=== PATIENT | female | born 1990 | race Asian ===

== ENCOUNTER 2016-12-10 20:52 | Emergency (ER) | payer BC ==
[~2016-12-10] VITALS: Ht 157.5 cm; Wt 63.0 kg
[~2016-12-10 20:52] MED LIST: HYDR-3498 PO; NAPR-260 PO
[2016-12-10 21:09] VITALS: Ht 157.5 cm; Wt 63.0 kg
[2016-12-10] MEDS ORDERED: TRIMETHOPRIM/SULFAMETHOX (DS) TAB PO STA (22:46)
[2016-12-10] MEDS ORDERED: CEPHALEXIN 500 MG CAP PO STA (22:46)
[2016-12-10] MEDS ORDERED: CEPH-443 PO (22:48)
[2016-12-10] MEDS ORDERED: BACTDS PO (22:48)
[2016-12-10] MEDS ORDERED: IBUP-1542 PO (22:50)
--- NOTE | 2016-12-10 23:01 | ERD ---
ER Documentation Chief Complaint Date/Time DATE: 12/10/16 TIME: 22:53 Chief Complaint L elbow swelling from a scrape. HPI This is a 26-year-old female presenting to the emergency department complaining of left elbow redness and pain that started last night status post getting an abrasion on it 2 days ago. Patient rates the pain 4 out of 10. Denies fever. Denies restricted range of motion. Patient states that she was seen at an urgent care [facility] at [facility] in which they have given her a Rocephin 1 g IM injection at 1955 and was referred to the ER for possible IV antibiotics. Patient denies any medical problems. ROS All systems reviewed and are negative except as per history of present illness. Medications Home Meds Active Scripts Ibuprofen* (Motrin*) 600 Mg Tab, 600 MG PO Q6H Y for PAIN AND OR ELEVATED TEMP, #30 TAB Prov:HUGO DIAZ PA-C 12/10/16 Sulfamethoxazole-Trimethoprim* (Bactrim* DS) 800-160 Mg Tab, 1 TAB PO BID for 7 Days, TAB Prov:HUGO DIAZ PA-C 12/10/16 Cephalexin* (Keflex*) 500 Mg Capsule, 500 MG PO QID for 10 Days, CAP Prov:HUGO DIAZ PA-C 12/10/16 Naproxen* (Naprosyn*) 500 Mg Tablet, 500 MG PO BID Y for PAIN AND/OR INFLAMMATION, #30 TAB Prov:JAYDE STEVENS DO 10/25/15 Hydrocodone Bit-Acetaminophen* ([place]*) 5-325 Mg Tab, 1 TAB PO Q6 Y for PAIN, # 7 TAB Prov:JAYDE STEVENS DO 10/25/15 Allergies Allergies: Coded Allergies: No Known Allergy (Unverified , 10/25/15) PMhx/Soc Medical and Surgical Hx: pt denies Medical Hx, pt denies Surgical Hx History of Surgery: Yes (OVARIAN CYST REMOVAL) Anesthesia Reaction: No Hx Neurological Disorder: No Hx Respiratory Disorders: No Hx Cardiac Disorders: No Hx Psychiatric Problems: No Hx Miscellaneous Medical Probl: Yes (ovarian cyst) Hx Alcohol Use: Yes (socially) Hx Substance Use: No Hx Tobacco Use: No Smoking Status: Never smoker Physical Exam Vitals Vital Signs Date Time Temp Pulse Resp B/P Pulse Ox O2 Delivery O2 Flow Rate FiO2 12/10/16 21:09 98.9 75 20 121/73 100 Physical Exam General: WD/WN, in no apparent distress, non-toxic appearing HENT: NC/AT Eyes: Conjunctiva normal Neck: Supple Pulm: Clear to auscultation, normal labored breathing; no wheezing/rales/ rhonchi heard CV: Good capillary refill GI: Non-distended, no guarding Back: No masses Ext: patient has no restricted range of motion bilaterally, non-tender with range of motion Neuro: Moves on all fours Skin: 5cm x 5cm Erythematous, swelling patch on the left elbow with warmth Psych: Normal mood Results 24 hrs Current Medications Medications (Trade) Dose Ordered Sig/Keith Route PRN Reason Start Time Stop Time Status Last Admin Dose Admin Cephalexin (Keflex) 500 mg ONCE STAT PO 12/10/16 22:46 12/10/16 22:47 DC Trimethoprim/ Sulfamethoxazole (Bactrim (Ds)) 1 tab ONCE STAT PO 12/10/16 22:46 12/10/16 22:47 DC Procedures/MDM This is a 26-year-old female presenting to the emergency department complaining of left elbow redness and pain that started last night status post getting an abrasion on it 2 days ago.. Patient states that she was seen at an urgent care [facility] at [facility] in which they have given her a Rocephin 1 g IM injection at 1955 and was referred to the ER for IV antibiotics for possible joint infection. On examination, patient appears well she is afebrile and nontoxic appearing. Patient had full range of motion of both extremities, she had no tenderness with range of motion as well. Patient appears to have non- circumferential 5 cm x 5 cm cellulitis around her left elbow due to an abrasion that occurred 2 days ago. Although patient was referred to the ER for IV antibiotics for a possible joint infection, on my examination patient appears to have cellulitis. She does not appear to have septic joint. There was no evidence of lymphangitis, osteomyelitis. Patient is suitable for oral antibiotics Keflex and Bactrim. I have discussed with patient to return to the emergency room for any worsening signs or symptoms. Discussed to return at this facility in 2 days for a wound check. The cellulitis has been marked with a skin marker. Patient understands and agrees with this plan. Departure Diagnosis: Primary Impression: Cellulitis Condition: Stable Patient Instructions: Cellulitis Additional Instructions: Follow-up with your physician or return to this facility in 2 DAYS for a follow- up exam.Return sooner if your condition worsens. Take all medicines as directed. Return to this facility if you are not improving as expected. HUGO DIAZ PA-C Dec 10, 2016 23:01
== END 2016-12-10 23:06 | disposition home or self-care (01) ==
LOC: FTE 20:52
DX: L03.114 Cellulitis of left upper limb (principal)
CPT/HCPCS: 99284